=== PATIENT | male | born 1975 | race African-American/Black ===

== ENCOUNTER 2020-03-14 07:50 | Emergency (ER) | payer MEDICAID ==
[~2020-03-14] VITALS: Ht 180.3 cm; Wt 75.0 kg
[2020-03-14] MEDS ORDERED: LORAZEPAM 2MG/ML CPJ IM STA (08:41)
[2020-03-14] MEDS ORDERED: HALOPERIDOL LACTATE 5MG/ML VIAL IM STA (08:41)
[2020-03-14] MEDS ORDERED: OLANZAPINE 10MG TABLET PO SCH (09:00)
[2020-03-14 09:25] LABS: BASOPHILS % 0.5 % (0.0-2.0); EOSINOPHILS % 2.9 % (0.0-5.0); HEMATOCRIT. 39.9 % (42.0-52.0); HEMOGLOBIN. 13.6 g/dL (14.0-18.0); MEAN CORPUSCULAR HEMOGLOBIN 30.8 pg (28.0-32.0); MEAN CORPUSCULAR VOLUME 90.1 fL (80.0-94.0); MEAN PLATELET VOLUME 6.7 fl (7.4-10.4); MONOCYTES % 7.5 % (2.0-8.0); NEUTROPHILS % 45.1 % (40.0-76.0); PLATELET 417 x1000/uL (130-400); RED BLOOD CELL COUNT 4.42 mill/uL (4.7-6.1); RED CELL DISTRIBUTION WIDTH 13.6 % (11.6-14.6)
[2020-03-14 09:31] LABS: CHLORIDE 113 mEq/L (98-107)
[2020-03-14 09:35] LABS: ETHANOL BLOOD 175 mg/dL
[2020-03-14 11:03] LABS: CLARITY URINE CLEAR (CLEAR); COLOR URINE YELLOW (YELLOW); KETONES URINE NEGATIVE (NEGATIVE); LEUKOCYTE ESTERASE URINE NEGATIVE (NEGATIVE); NITRITE URINE NEGATIVE (NEGATIVE); OCCULT BLOOD URINE 1+ (NEGATIVE); PROTEIN URINE NEGATIVE (NEGATIVE); SPECIFIC GRAVITY URINE 1.026 (1.005-1.030); UROBILINOGEN URINE 0.2 E.U./dL (0.2-1.0)
[2020-03-14 11:23] LABS: *AMPHETAMINES SCREEN URINE NEGATIVE (NEGATIVE); *BARBITURATES SCREEN URINE NEGATIVE (NEGATIVE); *BENZODIAZEPINES SCREEN URINE NEGATIVE (NEGATIVE); *COCAINE SCREEN URINE NEGATIVE (NEGATIVE); METHADONE URINE SCREEN NEGATIVE (NEGATIVE); OPIATES URINE SCREEN NEGATIVE (NEGATIVE)
[2020-03-14 11:24] LABS: CANNABINOID URINE SCREEN PRESUMTIVE POSITIVE (NEGATIVE); PHENCYCLIDINE URINE SCREEN NEGATIVE (NEGATIVE)
[2020-03-15 15:30] VITALS: BP 116/68
== END 2020-03-15 16:30 | disposition home or self-care (01) ==
LOC: ER 07:50
DX: F23 Brief psychotic disorder (principal); R45.1 Restlessness and agitation; F32.9 Major depressive disorder, single episode, unspecified; R45.851 Suicidal ideations; F12.10 Cannabis abuse, uncomplicated; Z75.1 Person awaiting admission to adequate facility elsewhere
CPT/HCPCS: 36415; 80053; 80305; 80307; 80320; 80329; 81003; 85025; 93005; 99285; J1630; J2060; G0480

== ENCOUNTER 2021-08-24 22:38 | Emergency (ER) | payer MEDICAID ==
[~2021-08-24] VITALS: Ht 185.4 cm; Wt 70.0 kg
[2021-08-24 22:42] VITALS: BP 121/90
== END 2021-08-24 23:33 | disposition home or self-care (01) ==
LOC: ER 22:38
DX: Z02.79 Encounter for issue of other medical certificate (principal); F32.9 Major depressive disorder, single episode, unspecified; F20.9 Schizophrenia, unspecified
CPT/HCPCS: 99283